=== PATIENT | female | born 2000 | race Caucasian/White ===

== ENCOUNTER 2018-01-27 17:39 | Emergency (ER) | payer OTHER ==
[2018-01-27 17:49] VITALS: RESP 18; TEMP 98.2
[2018-01-27] MEDS ORDERED: IBUPROFEN 600 MG TAB PO ONE (19:28)
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
[2018-01-27] MEDS ORDERED: OXYCODONE/APAP 5/325MG PREPACK#4 BTL TAKEHOME ONE (20:35)
[2018-01-27 21:13] VITALS: BP 114/68; PULSE 92; O2SAT 97
== END 2018-01-27 21:11 | disposition home or self-care (01) ==
DX: S50.01XA Contusion of right elbow, initial encounter (principal); S09.90XA Unspecified injury of head, initial encounter; V49.50XA Passenger injured in collision with unspecified motor vehicles in traffic accident, initial encounter; Y92.410 Unspecified street and highway as the place of occurrence of the external cause
CPT/HCPCS: A4565